=== PATIENT | male | born 1940 | race African-American/Black ===

== ENCOUNTER → 2017-09-09 | Outpatient (CLI) | payer OTHER ==
[~2017-09-09] MED LIST: ACETAMINOPHEN-1 EAC1 PO; ADULT LOW DOSE81 MG PO; ALLERGY RELIEF4 MG; AMLODIPINE BESY10 MG PO; ASPIR 8181 MG PO; BENICAR20 MG PO; CARTIA PO; CEFDINIR300 MG PO; CLONIDINE0.1 PO; COREG12.5 MG PO; COUMADIN 3 MG TA3 M1 PO; COZAAR 50 MG TA50 M2 PO; CYCLOBENZAPRINE5 MG PO; FLEXERIL PO; HYTRIN 5 M5 MG/1 CAP PO; LASIX 40 MG TAB40 M2 PO; LEVSIN PO; METAMUCIL PAC1 UDPK1 PO; METAMUCIL PAC1 UDPKT PO; MIRALAX17 GM PO; MUCOMYST PO; NORCO 5-325 TA1 EACH PO; PLAVIX 75 MG TA75 MG PO; PREDNISONE 20 M20 MG PO; PREDNISONE 5 MG5 M1 PO; PROTONIX40 M2 PO; STOOL SOFTENER50 MG PO; ULTRAM 50MG TAB50 MG PO
== END ==
LOC: ULTRA 14:24
DX: M79.604 Pain in right leg (principal); M79.89 Other specified soft tissue disorders; L53.9 Erythematous condition, unspecified

== ENCOUNTER 2018-01-04 13:34 | Emergency (ER) | payer OTHER ==
[~2018-01-04] VITALS: Ht 180.3 cm; Wt 120.2 kg
[~2018-01-04 13:34] MED LIST changes: -ACETAMINOPHEN-1 EAC1 PO; -ASPIR 8181 MG PO; -CEFDINIR300 MG PO; -CLONIDINE0.1 PO; -COUMADIN 3 MG TA3 M1 PO; -CYCLOBENZAPRINE5 MG PO; -MIRALAX17 GM PO; -PREDNISONE 20 M20 MG PO; -PREDNISONE 5 MG5 M1 PO; -ULTRAM 50MG TAB50 MG PO
[2018-01-04] MEDS ORDERED: COUMADIN 3 MG TA3 M1 PO (14:13)
[2018-01-04] MEDS ORDERED: MIRALAX17 GM PO (14:13)
[2018-01-04] MEDS ORDERED: ASPIR 8181 MG PO (14:14)
[2018-01-04] MEDS ORDERED: CYCLOBENZAPRINE5 MG PO (15:55)
[2018-01-04] MEDS ORDERED: CLONIDINE0.1 PO (18:34)
[2018-01-04 18:43] VITALS: BP 184/93
== END 2018-01-04 18:44 | disposition home or self-care (01) ==
LOC: ER 13:34
DX: S76.011A Strain of muscle, fascia and tendon of right hip, initial encounter (principal); I10 Essential (primary) hypertension; I25.2 Old myocardial infarction; Z95.5 Presence of coronary angioplasty implant and graft; K21.9 Gastro-esophageal reflux disease without esophagitis; Z85.46 Personal history of malignant neoplasm of prostate; Z90.89 Acquired absence of other organs; Z87.891 Personal history of nicotine dependence; Z88.0 Allergy status to penicillin; Z88.2 Allergy status to sulfonamides; Z88.8 Allergy status to other drugs, medicaments and biological substances; X58.XXXA Exposure to other specified factors, initial encounter; Y92.89 Other specified places as the place of occurrence of the external cause; Y93.89 Activity, other specified; Y99.8 Other external cause status

== ENCOUNTER 2018-04-13 09:27 | Emergency (ER) | payer OTHER ==
[~2018-04-13] VITALS: Ht 182.9 cm; Wt 122.0 kg
[~2018-04-13 09:27] MED LIST changes: +ASPIR 8181 MG PO; +CLONIDINE0.1 PO; +COUMADIN 3 MG TA3 M1 PO; +CYCLOBENZAPRINE5 MG PO; +MIRALAX17 GM PO
[2018-04-13] MEDS ORDERED: CEFDINIR300 MG PO (09:41)
[2018-04-13] MEDS ORDERED: PREDNISONE 5 MG5 M1 PO (09:42)
[2018-04-13 10:23] LABS: HEMATOCRIT 40.8 % (42.0-52.0); HEMOGLOBIN 13.7 gm/dL (14.0-18.0); MCH 28.7 pg (26.0-34.0); MCHC 33.6 g/dL (28.0-37.0); MCV 85.4 fL (80.0-100.0); PLATELET COUNT 93 thou/uL (150-400); RBC 4.78 mil/uL (4.50-6.00); RDW 15.8 % (10.5-14.5); WBC 2.7 thou/uL (4.0-11.0)
[2018-04-13 10:29] LABS: CREATININE 1.6 mg/dL (0.7-1.3)
[2018-04-13 10:42] LABS: ABSOLUTE NEUTROPHILS 1.8 thou/uL (1.4-8.2); ANISOCYTOSIS 1+
[2018-04-13 10:43] LABS: POLYCHROMASIA OCCASIONAL
[2018-04-13] MEDS ORDERED: ULTRAM 50MG TAB50 MG PO (11:51)
[2018-04-13 12:07] VITALS: BP 144/99
== END 2018-04-13 12:08 | disposition home or self-care (01) ==
LOC: ER 09:27
PROVIDERS: Emergency Medicine
DX: R51 Headache (principal); I10 Essential (primary) hypertension; I25.2 Old myocardial infarction; K21.9 Gastro-esophageal reflux disease without esophagitis; Z85.46 Personal history of malignant neoplasm of prostate; Z79.01 Long term (current) use of anticoagulants; Z79.899 Other long term (current) drug therapy; Z88.0 Allergy status to penicillin; Z88.2 Allergy status to sulfonamides; Z88.8 Allergy status to other drugs, medicaments and biological substances; Z87.891 Personal history of nicotine dependence

== ENCOUNTER 2018-04-21 12:12 | Emergency (ER) | payer OTHER ==
[~2018-04-21] VITALS: Ht 182.9 cm; Wt 122.5 kg
[~2018-04-21 12:12] MED LIST changes: +CEFDINIR300 MG PO; +PREDNISONE 5 MG5 M1 PO; +ULTRAM 50MG TAB50 MG PO
[2018-04-21 13:29] LABS: HEMATOCRIT 43.3 % (42.0-52.0); HEMOGLOBIN 14.6 gm/dL (14.0-18.0); MCH 28.9 pg (26.0-34.0); MCHC 33.7 g/dL (28.0-37.0); MCV 85.9 fL (80.0-100.0); PLATELET COUNT 127 thou/uL (150-400); RBC 5.04 mil/uL (4.50-6.00); RDW 15.4 % (10.5-14.5); WBC 2.7 thou/uL (4.0-11.0)
[2018-04-21 13:37] LABS: CALCIUM 9.8 mg/dL (8.5-10.1); CREATININE 1.6 mg/dL (0.7-1.3); POTASSIUM 5.2 mmol/L (3.5-5.1)
[2018-04-21 13:40] LABS: INR 2.2; PROTIME 22.1 Seconds (9.3-11.4)
[2018-04-21 13:43] LABS: ALBUMIN 3.6 g/dL (3.4-5.0); TOTAL BILIRUBIN 0.9 mg/dL (<0.1-1.0); TOTAL PROTEIN 7.5 g/dL (6.4-8.2)
[2018-04-21] MEDS ORDERED: PREDNISONE 20 M20 MG PO (14:05)
[2018-04-21 14:11] LABS: ABSOLUTE NEUTROPHILS 1.5 thou/uL (1.4-8.2); PLATELET ESTIMATE NORMAL
[2018-04-21] MEDS ORDERED: ACETAMINOPHEN-1 EAC1 PO (14:12)
[2018-04-21 14:37] VITALS: BP 116/117
== END 2018-04-21 14:38 | disposition home or self-care (01) ==
LOC: ER 12:12
PROVIDERS: Emergency Medicine
DX: I12.9 Hypertensive chronic kidney disease with stage 1 through stage 4 chronic kidney disease, or unspecified chronic kidney disease (principal); N18.9 Chronic kidney disease, unspecified; E87.5 Hyperkalemia; D72.818 Other decreased white blood cell count; D69.6 Thrombocytopenia, unspecified; R51 Headache; I25.2 Old myocardial infarction; K21.9 Gastro-esophageal reflux disease without esophagitis; Z85.46 Personal history of malignant neoplasm of prostate; Z86.718 Personal history of other venous thrombosis and embolism; Z79.01 Long term (current) use of anticoagulants; Z79.899 Other long term (current) drug therapy; Z88.0 Allergy status to penicillin; Z88.2 Allergy status to sulfonamides; Z88.8 Allergy status to other drugs, medicaments and biological substances; Z87.891 Personal history of nicotine dependence

== ENCOUNTER 2019-05-21 17:04 | Emergency (ER) | payer OTHER ==
[~2019-05-21] VITALS: Ht 182.9 cm; Wt 122.5 kg
[~2019-05-21 17:04] MED LIST changes: +ACETAMINOPHEN-1 EAC1 PO; +PREDNISONE 20 M20 MG PO
[2019-05-21 17:45] LABS: ABSOLUTE NEUTROPHILS 2.3 thou/uL (1.4-8.2); BASOPHILS 0.9 % (0.0-2.0); EOSINOPHILS 2.2 % (0.0-3.0); HEMATOCRIT 44.9 % (42.0-52.0); HEMOGLOBIN 14.6 gm/dL (14.0-18.0); LYMPHOCYTES 31.4 % (24.0-44.0); MCH 28.1 pg (26.0-34.0); MCHC 32.4 g/dL (28.0-37.0); MCV 86.6 fL (80.0-100.0); MONOCYTES 9.7 % (1.0-8.0); POLYS 55.8 % (36.0-66.0); RBC 5.19 mil/uL (4.50-6.00); RDW 15.6 % (10.5-14.5); WBC 4.6 thou/uL (4.0-11.0)
[2019-05-21 17:49] LABS: ANION GAP 11 mmol/L (7-16); BUN 18 mg/dL (7-18); CALCIUM 10.2 mg/dL (8.5-10.1); CHLORIDE 103 mmol/L (98-107); CO2 23 mmol/L (21-32); CREATININE 1.5 mg/dL (0.7-1.3); GLUCOSE 100 mg/dL (74-106); POTASSIUM 4.3 mmol/L (3.5-5.1); SODIUM 137 mmol/L (136-145)
[2019-05-21 17:59] LABS: ALBUMIN 3.7 g/dL (3.4-5.0); LIPASE 231 U/L (73-393); SGOT 45 U/L (15-37); SGPT 36 U/L (30-65); TOTAL BILIRUBIN 0.7 mg/dL (<0.1-1.0); TOTAL PROTEIN 7.3 g/dL (6.4-8.2); TROPONIN-I <0.06 ng/mL (<0.06)
[2019-05-21 18:11] LABS: PLATELET COUNT 127 thou/uL (150-400)
[2019-05-21] MEDS ORDERED: CYCLOBENZAPRINE10 MG PO (18:55)
[2019-05-21 20:19] VITALS: BP 138/95
--- NOTE | 2019-05-22 09:18 | EKG ---
[address] [place] [address] ELECTROCARDIOGRAM REPORT Name: TAYLOR COTTER [id number] Admission: 05/21/19 Attend Phys: Discharge: 05/21/19 Date of : 42 Report #: [id number] THIS REPORT FOR: //name// [facility] ED Test Date: 2019-05-21 Test Time: 17:12:58 Pat Name: TAYLOR COTTER Department: Room: Gender: Painter Rough: MIKE : 1940 Requested By: Ed Ambrose Order Number: [id number] MD: Carlos Jackson Measurements Intervals [place] Rate: 71 P: 17 ME: 200 QRS: -6 QRSD: 84 T: 15 QT: 377 QTc: 410 Interpretive Statements Sinus rhythm No significant abnormality Compared to ECG 05/20/2015 19:09:45 No significant change was found Electronically Signed On 05-22-2019 9:18:42 [employer] by Carlos Jackson [email or web address] <ELECTRONICALLY SIGNED> By: Carlos Jackson MD, [facility] 05/22/19917 171 171 Carlos Jackson MD, FACC /EPI
== END 2019-05-21 20:24 | disposition home or self-care (01) ==
LOC: ER 17:04
PROVIDERS: Emergency Medicine
DX: M62.838 Other muscle spasm (principal); M25.511 Pain in right shoulder; I10 Essential (primary) hypertension; K21.9 Gastro-esophageal reflux disease without esophagitis; Z95.5 Presence of coronary angioplasty implant and graft; Z90.49 Acquired absence of other specified parts of digestive tract; Z85.46 Personal history of malignant neoplasm of prostate; Z87.891 Personal history of nicotine dependence; Z88.0 Allergy status to penicillin; Z88.2 Allergy status to sulfonamides; Z88.8 Allergy status to other drugs, medicaments and biological substances